=== PATIENT | female | born 1955 | race Caucasian/White ===

== ENCOUNTER 2022-05-25 08:38 | Emergency (ER) | payer OTHER, SELFPAY ==
[2022-05-25 08:43] VITALS: BP 167/90; PULSE 83; RESP 18; TEMP 36.3; O2SAT 97; BMI 28.7
--- NOTE | 2022-05-25 08:57 | CRLHL7_ITS ---
For Patients: As a result of the Century Cures Act, medical imaging exams and procedure reports are released immediately into your electronic medical record. You may view this report before your referring provider. If you have questions, please contact your health care provider. INDICATION: Calf pain TECHNIQUE: : Left lower extremity duplex venous ultrasound utilizing grayscale imaging to assess compressibility as well as color and spectral Doppler sonography. COMPARISON: None. FINDINGS: Common femoral vein: Fully compressible with patent internal flow. Femoral vein: Fully compressible with patent internal flow. Popliteal vein: Fully compressible with patent internal flow. Posterior tibial veins: Fully compressible with patent internal flow. Peroneal veins: Fully compressible with patent internal flow. Greater saphenous vein: Fully compressible with patent internal flow. Other: Negative. IMPRESSION: No evidence of left lower extremity DVT. Dictated by Santosh Macedo MD @ 05/25/2022 10:20:53 AM Dictated by: Santosh Macedo MD @ 05/25/2022 10:21:03 (Electronically Signed)
--- NOTE | 2022-05-25 08:58 | ED.GENADULT ---
HPI - General Adult General Date Seen: 05/25/22 Chief complaint: Extremity Pain/Injury, Lower Stated complaint: Leg Pain Time Seen by Provider: 05/25/22 08:53 Source: patient History of Present Illness HPI narrative: Patient is a 66-year-old woman who was awakened this morning by and mild throbbing pain in her left calf. It hurts to flex her foot back in hurts to walk. It is focal, in the mid to upper outer calf, without radiation. She denies any injury yesterday although she was doing a lot of vacuuming and wonders if she might have strained it doing that. She started doing some exercises with weights, but she has not done that for a few days and so she does not think that is relevant. She has not noted any swelling or redness. No fevers. No chest pain or shortness of breath. No history of DVT. She has had multiple surgeries without incident. She thinks her aunt had PE, no 1st degree relatives with history of DVT or PE. She has been on hormone replacement for about 8 years, so she was concerned and thought she should get it checked out. She has not taken any medications for it. She quit smoking about 2 and half years ago. No significant alcohol use. Generally healthy, has a recent diagnosis of irritable bowel syndrome and reflux, scheduled to see GI. Other than hormone replacement and a PPI, no other medications. Related Data Home Medications Medication Instructions Recorded Confirmed citalopram 20 mg tablet (Celexa) 20 mg PO DAILY 05/25/22 05/25/22 diphenhydramine 25 1 tab PO Q8H PRN 05/25/22 05/25/22 mg-acetaminophen 500 mg tablet (Tylenol PM Extra Strength) estradiol 0.0375 mg/24 hr 1 patch TRANSDERMAL 2XW 05/25/22 05/25/22 semiweekly transdermal patch trazodone 50 mg tablet 50 mg PO DAILY 05/25/22 05/25/22 Allergies Allergy/AdvReac Type Severity Reaction Status Date / Time lincomycin Allergy Verified 05/25/22 08:49 thimerosal Allergy Verified 05/25/22 08:50 Review of Systems Status of ROS: Reports: 10 or more systems reviewed and unremarkable except as noted in History and below PFSH PFSH Social History Smoking Status: Unknown if ever smoked Non-prescribed substance use: denies use service: No Exam Narrative: Exam Narrative: Vital signs as noted above. In general, an alert, well-appearing patient. Head: Normocephalic, atraumatic. Eyes: Pupils are equal reactive. Extraocular movements are full. Conjunctivae are normal. ENT: Mucous membranes are moist. Throat is normal. Neck: Supple without lymphadenopathy. Heart: Regular rate and rhythm. No murmur or rub. Lungs: Clear bilaterally. No increased work of breathing, crackles or wheezes. Abdomen: Soft and nontender. No organomegaly. Extremities: Well perfused. No edema. Focal tenderness in the left calf, mid upper, slightly lateral of midline. No erythema, swelling, bruising. Calf is normal in appearance. Pulses intact. Neurologic: Patient is alert and oriented to person and place. Speech is fluent. Face is symmetric. Moves all extremities equally. Affect: Normal. Skin: Warm and dry. Well perfused. Const: Vital Signs, click to edit/add: Vital Signs - 24 hr 05/25/22 08:43 05/25/22 09:02 Temperature 97.4 F L Pulse Rate [Right Pulse Oximeter] 83 Respiratory Rate 18 Blood Pressure [Ri ght Upper Arm] 167/90 H 144/83 H Pulse Oximetry 97 Documenting provider has reviewed patient's vital signs: yes Course Course Hospital Course: We elected to do a Doppler of the left lower extremity, read by Radiology as negative for DVT. Discussed with the patient that her symptoms may be related to muscle soreness or contusion from a trauma that she does not remember, she does retrospectively remember a few weeks ago tripping over her dog and injuring her calf then, but it has not been hurting for the past 2 weeks so I think that is unlikely to be related. In any case, would recommend just monitoring this for now. I have reassured her that I do not believe this is related at all to clot in the venous system. I do not see any sign of infection right now, nor do I see anything that looks like superficial thrombophlebitis. Certainly does not sound suggestive of claudication. If she develops redness, swelling, or other changes, return for re-evaluation. Otherwise, would suggest using some Tylenol and ice, seeing if she improves. For persistent symptoms without any worsening, follow up with primary care. Vital Signs Vital signs: Initial Vital Signs Temperature 97.4 F L 05/25/22 08:43 Temperature Source Temporal Artery Scan 05/25/22 08:43 Pulse Rate 83 05/25/22 08:43 Respiratory Rate 18 05/25/22 08:43 Blood Pressure 167/90 H 05/25/22 08:43 Blood Pressure Mean 115 05/25/22 08:43 Blood Pressure Position Sitting 05/25/22 08:43 Pulse Oximetry 97 05/25/22 08:43 Oxygen Delivery Method 05/25/22 08:43 Vital Signs Temperature 97.4 F L 05/25/22 08:43 Pulse Rate 83 05/25/22 08:43 Respiratory Rate 18 05/25/22 08:43 Blood Pressure 167/90 H 05/25/22 08:43 Pulse Oximetry 97 05/25/22 08:43 Temperature 97.4 F L 05/25/22 08:43 Pulse Rate 83 05/25/22 08:43 Respiratory Rate 18 05/25/22 08:43 Blood Pressure 144/83 H 05/25/22 09:02 Pulse Oximetry 97 05/25/22 08:43 Discharge Plan Discharge Clinical Impression: Pain of left calf Patient Disposition: Home, Self-Care Condition: Stable Instructions: Leg Pain (ED) Additional Instructions: Okay to take ibuprofen or Tylenol if needed. Otherwise, ice, rest. For severe or worsening pain, new symptoms such as redness or swelling, return to the emergency department. Otherwise, see her primary doctor if symptoms do not improve. Prescriptions: No Action estradiol 0.0375 mg/24 hr patch semiweekly 1 patch transdermal 2XW 0RF Rx Instructions: apply 1 patch for 3 days alternating with 1 patch for 4 days each week for 3 wks per 4-wk cycle citalopram [Celexa] 20 mg tablet 20 mg PO DAILY 0RF trazodone 50 mg tablet 50 mg PO DAILY 0RF diphenhydramine-acetaminophen [Tylenol PM Extra Strength] 25-500 mg tablet 1 tab PO Q8H [id number] Follow Up/Referrals: Melanie Gu MD [Primary Care Provider] - Stand Alone Forms: My[facility] Info Instructions
--- NOTE | 2022-05-25 09:01 | PC.NURSE ---
US en route to ER
[2022-05-25 09:02] VITALS: BP 144/83
--- NOTE | 2022-05-25 09:50 | PC.NURSE ---
US here now
== END 2022-05-25 11:19 | disposition home or self-care (01) ==
PROVIDERS: Emergency Provider Emergency Medicine; PCP Family Medicine
DX: M79.662 Pain in left lower leg (principal)
CPT/HCPCS: 93971; 99283

== ENCOUNTER 2023-04-28 13:06 | Outpatient (CLI) | payer OTHER, SELFPAY | END 2023-04-28 13:07 | disposition home or self-care (01) | PROVIDERS: PCP Family Medicine; Visit Provider Family Medicine | DX: Z00.00 Encounter for general adult medical examination without abnormal findings (principal); R10.9 Unspecified abdominal pain; R79.89 Other specified abnormal findings of blood chemistry; R19.7 Diarrhea, unspecified; Z76.89 Persons encountering health services in other specified circumstances | CPT/HCPCS: 80053 ==

== ENCOUNTER 2023-05-06 10:56 | Outpatient (CLI) | payer MEDICARE, SELFPAY ==
--- NOTE | 2023-05-06 11:00 | CRLHL7_ITS ---
For Patients: As a result of the Century Cures Act, medical imaging exams and procedure reports are released immediately into your electronic medical record. You may view this report before your referring provider. If you have questions, please contact your health care provider. CLINICAL HISTORY: Diarrhea, unspecified COMPARISON: none TECHNIQUE: Real time pool scale imaging and color Doppler analysis was performed of the abdomen. FINDINGS: Sonographic imaging demonstrates normal size and diffusely increased echotexture of the liver. The spleen is not visualized. The visualized pancreas appears normal. The proximal abdominal aorta and IVC appear normal. There is no evidence of ascites. The gallbladder is absent. The common bile duct measures 4.2 mm in size within the yazmin hepatis. The right kidney measures 8.2 cm in length and the left kidney measures 10.5 cm. There is no evidence of a renal calculus or hydronephrosis. IMPRESSION: Diffuse hepatic steatosis. Status post cholecystectomy. No biliary obstruction. The spleen is not visualized. Dictated by Russ Prince MD @ 05/06/2023 11:57:25 AM (Electronically Signed)
== END 2023-05-06 10:57 | disposition home or self-care (01) ==
PROVIDERS: PCP Family Medicine; Visit Provider Family Medicine
DX: R19.7 Diarrhea, unspecified (principal); K76.0 Fatty (change of) liver, not elsewhere classified; R79.89 Other specified abnormal findings of blood chemistry; R10.9 Unspecified abdominal pain
CPT/HCPCS: 76700

== ENCOUNTER 2023-07-31 12:55 | Outpatient (CLI) | payer MEDICARE, SELFPAY | END 2023-07-31 12:56 | disposition home or self-care (01) | LOC: NFLDREF 08-05 11:34 | PROVIDERS: PCP Family Medicine; Referring Provider Family Medicine; Visit Provider Physician Assistant | DX: R30.0 Dysuria (principal); N89.8 Other specified noninflammatory disorders of vagina; R10.2 Pelvic and perineal pain | CPT/HCPCS: 87086; 87186 ==

== ENCOUNTER 2024-05-05 13:07 | Outpatient (CLI) | payer MEDICARE, SELFPAY ==
--- NOTE | 2024-05-05 13:30 | CRLHL7_ITS ---
For Patients: As a result of the Century Cures Act, medical imaging exams and procedure reports are released immediately into your electronic medical record. You may view this report before your referring provider. If you have questions, please contact your health care provider. DXA BONE MINERAL DENSITY STUDY Reason for exam: Screening. Current height (in): 65. Weight (lb): 170. Menopause age: 58. Ethnicity: White. 1. Have you had a previous hip or vertebral fracture? No. 2. Have you had any fractures during your adult life which did not result from significant trauma (e.g., auto accident)? No. 3. Did either of your parents have a hip fracture? No. 4. Do you smoke? No. 5. Have you ever taken Glucocorticoids? No. 6. Do you have rheumatoid arthritis? No. 7. Do you have secondary osteoporosis? No. 8. Do you drink 3 or more alcoholic drinks per day? No. 9. Are you being treated for osteoporosis? No. 10. Have you ever taken any of the following medications: Actonel, Evista, Fosamax, Miacalcin, Reclast, Boniva, Forteo, HRT (i.e., estrogen/hormone therapy), Protelos, Prolia, Vitamin D, Calcium, other ??? please specify. ANSWER: Yes, estradiol patches. 11. Do you have any of the following medical conditions: Anorexia or bulimia, asthma or emphysema, end stage renal disease, hyperparathyroidism, any seizure disorders, cancer, inflammatory bowel diseases, hysterectomy, other ??? please specify. ANSWER: Yes, IBS and GERD. 12. What was your maximum height (inches)? 66. 13. Do you perform weight bearing exercise regularly? Yes. 14. Do you regularly consume dairy products? Yes. 15. Do you drink caffeinated beverages? Yes. 16. At what age did your period start? 13. 17. Are you premenopausal? No. 18. How many full-term pregnancies have you had? 3. 19. Have you ever missed your period for more than 6 months in a row (not including or menopause)? No. TECHNIQUE: Bone mineral density study was performed using the [employer]. FINDINGS: The results of the study expressed as bone mineral density (BMD) are as follows: Lumbar spine L1 to L4: BMD: 1.130 g/cm2. T-score: 0.8. Z-score: 2.7 Neck Left: BMD: 0.947 g/cm2. T-score: 0.9. Z-score: 2.6 Right: BMD: 0.959 g/cm2. T-score: 1.0. Z-score: 2.7 Total Left: BMD: 1.164 g/cm2. T-score: 1.8. Z-score: 3.2 Right: BMD: 1.095 g/cm2. T-score: 1.3. Z-score: 2.6 IMPRESSION: Normal bone density. GOLDEN KEARNS M.D. Transcribed: 1:15 p.m. [email or web address] jj/[email or web address] by: Golden Kearns MD @ 05/07/2024 8:11:00 AM (Electronically Signed)
== END 2024-05-05 13:08 | disposition home or self-care (01) ==
LOC: RAD 13:09
PROVIDERS: PCP Family Medicine; Visit Provider Family Medicine
DX: Z79.890 Hormone replacement therapy (principal); N95.1 Menopausal and female climacteric states; R23.2 Flushing; Z13.820 Encounter for screening for osteoporosis
CPT/HCPCS: 77080

== ENCOUNTER 2025-03-30 08:23 | Outpatient (CLI) | payer MEDICARE, SELFPAY | END 2025-03-30 08:24 | disposition home or self-care (01) | LOC: NFLDREF 04-01 16:49 | PROVIDERS: PCP Family Medicine; Referring Provider Family Medicine; Visit Provider Family Medicine | DX: Z00.00 Encounter for general adult medical examination without abnormal findings (principal); E78.00 Pure hypercholesterolemia, unspecified; F10.10 Alcohol abuse, uncomplicated; R82.90 Unspecified abnormal findings in urine | CPT/HCPCS: 80053; 80061; 87086 ==

== ENCOUNTER 2025-06-24 11:42 | Outpatient (CLI) | payer MEDICARE, SELFPAY | END 2025-06-24 11:43 | disposition home or self-care (01) | LOC: LKVREF 11:44 | PROVIDERS: PCP Family Medicine; Visit Provider Family Medicine | DX: I10 Essential (primary) hypertension (principal) | CPT/HCPCS: 80053 ==

== ENCOUNTER 2025-07-01 09:05 | Outpatient (CLI) | payer MEDICARE, SELFPAY ==
--- NOTE | 2025-07-01 09:15 | CRLHL7_ITS ---
For Patients: As a result of the Century Cures Act, medical imaging exams and procedure reports are released immediately into your electronic medical record. You may view this report before your referring provider. If you have questions, please contact your health care provider. INDICATION: Unspecified abdominal pain COMPARISON: 05/06/2023 TECHNIQUE: Real time pool scale imaging and color Doppler analysis was performed of the right upper quadrant. FINDINGS: Liver echotexture is diffusely increased. Liver measures 14.7 cm. Simple cyst within the left hepatic lobe measures 7 x 4 x 6 millimeters. There is a normal appearance of the hepatic IVC and proximal abdominal aorta. There is no evidence of ascites. The gallbladder is absent. The common bile duct is of normal size and measures 3.6 mm in diameter at the level of the yazmin hepatis. The visualized pancreas appears hyperechoic, as before. There is no evidence of a stone or hydronephrosis within the right kidney. The right kidney measures 9.0 cm in length. IMPRESSION: Moderate hepatic steatosis. Incidental intrahepatic cyst. Status post cholecystectomy without biliary obstruction. Dictated by Russ Prince MD @ 07/01/2025 10:07:14 AM (Electronically Signed)
== END 2025-07-01 09:06 | disposition home or self-care (01) ==
LOC: US 09:05
PROVIDERS: PCP Family Medicine; Visit Provider Family Medicine
DX: R10.9 Unspecified abdominal pain (principal); K76.0 Fatty (change of) liver, not elsewhere classified; K76.89 Other specified diseases of liver; R79.89 Other specified abnormal findings of blood chemistry
CPT/HCPCS: 76705

== ENCOUNTER 2025-10-17 08:40 | Outpatient (CLI) | payer MEDICARE, SELFPAY | END 2025-10-17 08:41 | disposition home or self-care (01) | LOC: NFLDREF 10-21 15:03 | PROVIDERS: PCP Family Medicine; Referring Provider Family Medicine; Visit Provider Family Medicine | DX: R79.89 Other specified abnormal findings of blood chemistry (principal); E78.00 Pure hypercholesterolemia, unspecified | CPT/HCPCS: 80061; 80076 ==